=== PATIENT | female | born 1995 | race African-American/Black ===

== ENCOUNTER → 2018-05-09 | Outpatient (CLI) | payer OTHER | LOC: RAD 11:25 | DX: J45.909 Unspecified asthma, uncomplicated (principal); M41.85 Other forms of scoliosis, thoracolumbar region ==

== ENCOUNTER → 2018-05-10 | Outpatient (CLI) | payer OTHER ==
--- NOTE | 2018-05-24 21:08 | PFR/MVV ---
[facility] [place] [address] PULMONARY FUNCTION MVV/REPORT Name: EDDIE DURAN Room #: REG PETER Orourke.#: [id number] ������������������ Admission: 05/10/18 ������������������ Attend Phys: PIYUSH Rose Discharge: ������������������ Date of : [birth year] Report #: [id number] THIS REPORT FOR: //name// COPIES FOR: AGE:������ 22 SEX/RACE:� F/B >> SPIROMETRY: (BTPS) Height: 65 in cm Weight: 138 lbs kg Exam Date: 05/10/18 PRE-RX POST-RX PRED BEST %PRED BEST %PRED %CHG FVC LITERS . 3.79 . 2.90 . 77 . 3.20 . 85 . 11 FEV1 LITERS . 3.26 . 1.38 . 42 . 1.56 . 48 . 13 FEV1/FVC % . 87 . 48 . 55 . 49 . 56 . 2 TKA14-23% L/Sec . 3.90 . 0.71 . 18 . 1.18 . 30 . 66 PEF L/SEC . 7.47 . 1.44 . 19 . 1.72 . 23 . 19 FEF50/FIF50 UNITLESS . . 1.42 . . 0.63 . . -56 MVV L/Min . 122 . 23 . 19 f 1/Min . . 170 . >> LUNG VOLUMES: (BTPS) PRE-RX POST-RX PRED AVG %PRED AVG %PRED %CHG VC Liters . 3.78 . 2.90 . 77 . . . TLC Liters . 5.41 . 5.61 . 104 . . . RV Liters . 1.57 . 2.72 . 173 . . . RV/TLC % . 27 . 48 . 177 . . . FRC [address] Liters . 2.97 . 3.68 . 124 . . . FRC N2 Liters . . . . . . ERV Liters . . .96 . . . . IC Liters . . 1.78 . . . . >> DIFFUSION: DLCO ml/Min/mmHg . 24.2 . 18.8 . 78 . . . DL Ingrid ml/Min/mmHg . 24.2 . 18.8 . 78 . . . DLCO/VA ml/Min/mmHg . 4.76 . 4.51 . 95 . . . VA Liters . . 4.18 . . . . [facility] [address] [place] [address] PULMONARY FUNCTION MVV/REPORT Name: EDDIE DURAN Room #: REG [facility] River#: [id number] ������������������ Admission: 05/10/18 ������������������ Attend Phys: PIYUSH Rose Discharge: ������������������ Date of : [birth year] Report #: [id number] COMMENTS: COMMENTS: >> RESISTANCE: PRE-RX PRED AVG %PRED Raw Total cmH20/L/Sec . . 4.57 . Raw Insp cmH20/L/Sec . . 6.36 . Raw Exp cmH20/L/Sec . . 6.69 . Raw cmH20/L/Sec . 1.28 . 1.73 . 135 Gaw L/Sec/cmH20 . 0.713 . 0.580 . 81 sRaw cmH20 Sec . 3.79 . 5.84 . 154 sGaw l/cmH20 Sec . 0.264 . 0.171 . 65 Vtq Liters . . 3.38 . # = OUTSIDE 95% CONFIDENCE INTERVAL CALIBRATION: PRED: 3.00 ACTUAL: EXP 3.01 INSP 3.02 [facility]-OL10-06 [facility]-05 N-1804-4 >> INTERPRETATION/IMPRESSION: C: Nahid THOMPSON physician/PCP DATE OF SERVICE: 05/10/2018 SPIROMETRY: FEV1 is 1.38 liters (42%). FVC is 2.90 liters (77%). FEV1/FVC ratio is 48%. Post-bronchodilator therapy with significant response. FEV1 is 1.56 liters (13% change). LUNG VOLUMES: Diffusing capacity is 18.8% (76%). DLCO is 78%. 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 Diffusing capacity is severely decreased. ��������������������������������������������� <ELECTRONICALLY SIGNED> ���������������������������������������� By: Venancio Lee MD ��������������������������������������������� 05/24/18 2108 Venancio Lee MD /nt
== END ==
LOC: PUL 12:46
DX: J45.909 Unspecified asthma, uncomplicated (principal); R06.02 Shortness of breath